=== PATIENT | male | born 1935 | race Caucasian/White ===

== ENCOUNTER → 2016-08-11 | Outpatient (CLI) | payer MEDICARE, OTHER ==
[~2016-08-11] MED LIST: ATENOLOL25 MG PO; MECLIZINE HCL25 M1 PO; ST. JOSEPH81 M2 PO
== END ==
LOC: LAB 17:11
DX: M77.12 Lateral epicondylitis, left elbow (principal); L03.114 Cellulitis of left upper limb

== ENCOUNTER → 2016-08-12 | Outpatient (CLI) | payer MEDICARE, OTHER | LOC: RAD 08:03 | DX: M77.12 Lateral epicondylitis, left elbow (principal); M11.222 Other chondrocalcinosis, left elbow ==

== ENCOUNTER → 2016-10-20 | Outpatient (CLI) | payer MEDICARE, OTHER | LOC: RAD 14:53 | DX: M25.561 Pain in right knee (principal); M79.671 Pain in right foot; M25.571 Pain in right ankle and joints of right foot; M17.11 Unilateral primary osteoarthritis, right knee; M11.261 Other chondrocalcinosis, right knee ==

== ENCOUNTER → 2016-12-03 | Outpatient (CLI) | payer MEDICARE ==
[2011-09-19 18:24] VITALS: BP 121/63
== END ==
LOC: RAD 11:04
DX: R41.3 Other amnesia (principal)

== ENCOUNTER → 2017-04-15 | Outpatient (CLI) | payer MEDICARE ==
[2011-09-19 18:24] VITALS: BP 121/63
== END ==
LOC: LAB 09:23
DX: I45.4 Nonspecific intraventricular block (principal)

== ENCOUNTER → 2017-05-04 | Outpatient (CLI) | payer MEDICARE ==
[2011-09-19 18:24] VITALS: BP 121/63
== END ==
LOC: LAB 09:10
DX: E03.9 Hypothyroidism, unspecified (principal)

== ENCOUNTER → 2018-04-12 | Outpatient (CLI) | payer MEDICARE, OTHER ==
[2011-09-19 18:24] VITALS: BP 121/63
[2018-04-12 09:52] LABS: EOS # 0.4 (0.04-0.40); HEMATOCRIT 38.3 % (42.0-52.0); HEMOGLOBIN 12.9 g/dL (13.5-18.0); MEAN CELL VOLUME 86 fl (78-100); MEAN CORPUSCULAR HEMOGLOBIN 29 pg (27-31); MEAN CORPUSCULAR HGB CONC 34 g/dL (33-37); MEAN PLATELET VOLUME 9.9 fl (7.4-10.4); MONO # 0.6 (0.20-0.80); PLATELET COUNT 115 K/mm3 (130-400); RED BLOOD COUNT 4.46 M/mm3 (4.20-5.60); RED CELL DISTRIBUTION WIDTH 13.4 % (11.5-14.5)
[2018-04-12 10:01] LABS: EOS % 7.2 % (0.0-4.0)
[2018-04-12 10:07] LABS: ALBUMIN 3.7 g/dL (3.5-5.0); CALCIUM 9.4 mg/dL (8.4-10.2); POTASSIUM 4.1 mmol/L (3.6-5.0); TOTAL BILIRUBIN 1.2 mg/dL (0.2-1.3); TOTAL PROTEIN 6.4 g/dL (6.3-8.2)
== END ==
LOC: LAB 09:36
PROVIDERS: Family Medicine
DX: Z00.00 Encounter for general adult medical examination without abnormal findings (principal); M10.9 Gout, unspecified; D51.0 Vitamin B12 deficiency anemia due to intrinsic factor deficiency; E78.5 Hyperlipidemia, unspecified; R73.02 Impaired glucose tolerance (oral); E03.9 Hypothyroidism, unspecified

== ENCOUNTER → 2018-10-11 | Outpatient (CLI) | payer MEDICARE, OTHER ==
[2011-09-19 18:24] VITALS: BP 121/63
[2018-10-11 13:43] LABS: EOS # 0.2 (0.04-0.40); EOS % 4.3 % (0.0-4.0); HEMATOCRIT 39.7 % (42.0-52.0); LYMPH# 0.8 (1.50-4.00); MEAN CELL VOLUME 85 fl (78-100); MEAN CORPUSCULAR HEMOGLOBIN 28 pg (27-31); MEAN CORPUSCULAR HGB CONC 33 g/dL (33-37); MEAN PLATELET VOLUME 10.1 fl (7.4-10.4); MONO # 0.4 (0.20-0.80); NEU # 4.1 (1.40-6.50); PLATELET COUNT 121 K/mm3 (130-400); RED BLOOD COUNT 4.66 M/mm3 (4.20-5.60); RED CELL DISTRIBUTION WIDTH 13.7 % (11.5-14.5); WHITE BLOOD COUNT 5.6 K/mm3 (4.8-10.8)
== END ==
LOC: LAB 13:28
PROVIDERS: Family Medicine
DX: D51.0 Vitamin B12 deficiency anemia due to intrinsic factor deficiency (principal); E03.9 Hypothyroidism, unspecified

== ENCOUNTER → 2019-02-09 | Outpatient (CLI) | payer MEDICARE, OTHER ==
[2011-09-19 18:24] VITALS: BP 121/63
[2019-02-09 11:47] LABS: EOS # 0.3 (0.04-0.40); HEMATOCRIT 42.1 % (42.0-52.0); HEMOGLOBIN 13.6 g/dL (13.5-18.0); LYMPH# 0.9 (1.50-4.00); MEAN CELL VOLUME 87 fl (78-100); MEAN CORPUSCULAR HEMOGLOBIN 28 pg (27-31); MEAN CORPUSCULAR HGB CONC 32 g/dL (33-37); MEAN PLATELET VOLUME 10.2 fl (7.4-10.4); MONO # 0.6 (0.20-0.80); NEU # 4.2 (1.40-6.50); PLATELET COUNT 136 K/mm3 (130-400); RED BLOOD COUNT 4.83 M/mm3 (4.20-5.60)
[2019-02-09 11:48] LABS: EOS % 5.7 % (0.0-4.0)
[2019-02-09 11:56] LABS: ALBUMIN 3.9 g/dL (3.4-4.8)
[2019-02-09 11:57] LABS: POTASSIUM 4.5 mmol/L (3.5-5.1)
[2019-02-09 11:58] LABS: CALCIUM 9.9 mg/dL (8.3-10.5)
[2019-02-09 11:59] LABS: TOTAL PROTEIN 6.6 g/dL (6.2-8.1)
[2019-02-09 12:01] LABS: TOTAL BILIRUBIN 1.1 mg/dL (0.2-1.2)
== END ==
LOC: LAB 11:37
PROVIDERS: Nurse Practitioner
DX: K92.1 Melena (principal)

== ENCOUNTER → 2019-03-16 | Outpatient (CLI) | payer MEDICARE, OTHER ==
[2011-09-19 18:24] VITALS: BP 121/63
[2019-03-16 13:55] LABS: CALCIUM 9.2 mg/dL (8.3-10.5); POTASSIUM 4.1 mmol/L (3.5-5.1)
== END ==
LOC: LAB 13:10
PROVIDERS: Family Medicine
DX: N17.9 Acute kidney failure, unspecified (principal)

== ENCOUNTER → 2019-04-28 | Outpatient (CLI) | payer MEDICARE, OTHER ==
[2011-09-19 18:24] VITALS: BP 121/63
[2019-04-28 12:41] LABS: POTASSIUM 4.7 mmol/L (3.5-5.1)
[2019-04-28 12:43] LABS: TOTAL PROTEIN 6.8 g/dL (6.2-8.1)
[2019-04-28 12:45] LABS: TOTAL BILIRUBIN 1.2 mg/dL (0.2-1.2)
== END ==
LOC: RAD 12:03
PROVIDERS: Internal Medicine Cardiovascular Disease
DX: Z95.0 Presence of cardiac pacemaker (principal); Z79.899 Other long term (current) drug therapy

== ENCOUNTER → 2019-06-02 | Outpatient (CLI) | payer MEDICARE, OTHER ==
[2011-09-19 18:24] VITALS: BP 121/63
[2019-06-03 08:48] LABS: ALBUMIN 3.4 g/dL (3.4-4.8); POTASSIUM 4.3 mmol/L (3.5-5.1)
[2019-06-03 08:49] LABS: CALCIUM 9.3 mg/dL (8.3-10.5)
[2019-06-03 08:50] LABS: TOTAL PROTEIN 5.7 g/dL (6.2-8.1)
[2019-06-03 08:52] LABS: TOTAL BILIRUBIN 0.7 mg/dL (0.2-1.2)
[2019-06-05 09:59] LABS: EOS # 0.2 (0.04-0.40); EOS % 3.2 % (0.0-4.0); HEMOGLOBIN 12.2 g/dL (13.5-18.0); MEAN CELL VOLUME 88 fl (78-100); MEAN CORPUSCULAR HEMOGLOBIN 28 pg (27-31); MEAN CORPUSCULAR HGB CONC 32 g/dL (33-37); MEAN PLATELET VOLUME 11.9 fl (7.4-10.4); MONO # 0.6 (0.20-0.80); NEU # 5.1 (1.40-6.50); PLATELET COUNT 113 K/mm3 (130-400); RED CELL DISTRIBUTION WIDTH 12.9 % (11.5-14.5); WHITE BLOOD COUNT 6.9 K/mm3 (4.8-10.8)
== END ==
LOC: LAB 13:07
PROVIDERS: Family Medicine
DX: N28.9 Disorder of kidney and ureter, unspecified (principal); K92.1 Melena; E78.5 Hyperlipidemia, unspecified; E03.9 Hypothyroidism, unspecified; R73.02 Impaired glucose tolerance (oral)

== ENCOUNTER → 2019-12-06 | Outpatient (CLI) | payer MEDICARE, OTHER ==
[2019-10-20 13:27] VITALS: BP 145/84
[~2019-12-06] MED LIST changes: +AMIODARONE200 MG PO; +ATORVASTATIN CA40 MG PO; +COLCRYS0.6 MG PO; +DONEPEZIL HCL10 MG PO; +GOOD NEIGHBOR150 MG PO; +LEVOTHYROXINE0.05 MG PO; +LOPRESSOR 225 MG/TAB PO; +MEMANTINE HCL10 MG PO
[2019-12-06 11:38] LABS: EOS # 0.3 (0.04-0.40); EOS % 4.5 % (0.0-4.0); HEMATOCRIT 36.1 % (42.0-52.0); HEMOGLOBIN 11.4 g/dL (13.5-18.0); LYMPH# 0.9 (1.50-4.00); MEAN CELL VOLUME 87 fl (78-100); MEAN CORPUSCULAR HEMOGLOBIN 28 pg (27-31); MEAN CORPUSCULAR HGB CONC 32 g/dL (33-37); MEAN PLATELET VOLUME 9.7 fl (7.4-10.4); MONO # 0.6 (0.20-0.80); NEU # 4.2 (1.40-6.50); PLATELET COUNT 116 K/mm3 (130-400); RED BLOOD COUNT 4.15 M/mm3 (4.20-5.60); RED CELL DISTRIBUTION WIDTH 14.9 % (11.5-14.5)
[2019-12-06 11:47] LABS: ALBUMIN 3.3 g/dL (3.4-4.8); POTASSIUM 4.3 mmol/L (3.5-5.1)
[2019-12-06 11:49] LABS: TOTAL PROTEIN 5.7 g/dL (6.2-8.1)
[2019-12-06 11:51] LABS: TOTAL BILIRUBIN 0.9 mg/dL (0.2-1.2)
== END ==
LOC: LAB 11:19
PROVIDERS: Family Medicine
DX: D64.9 Anemia, unspecified (principal); E78.1 Pure hyperglyceridemia

== ENCOUNTER → 2020-05-11 | Outpatient (CLI) | payer MEDICARE, OTHER ==
[2019-10-20 13:27] VITALS: BP 145/84
[2020-05-11 09:01] LABS: ALBUMIN 3.5 g/dL (3.4-4.8)
[2020-05-11 09:04] LABS: TOTAL PROTEIN 5.9 g/dL (6.2-8.1)
[2020-05-11 09:06] LABS: TOTAL BILIRUBIN 0.9 mg/dL (0.2-1.2)
[2020-05-11 09:09] LABS: DIRECT BILIRUBIN 0.5 mg/dL (0.0-0.5)
== END ==
LOC: LAB 08:27
PROVIDERS: Family Medicine
DX: E78.5 Hyperlipidemia, unspecified (principal)

== ENCOUNTER → 2020-05-16 | Outpatient (CLI) | payer MEDICARE, OTHER ==
[2019-10-20 13:27] VITALS: BP 145/84
[2020-05-16 10:03] LABS: HEMATOCRIT 34.9 % (42.0-52.0); HEMOGLOBIN 11.1 g/dL (13.5-18.0); MEAN PLATELET VOLUME 10.5 fl (7.4-10.4); RED BLOOD COUNT 3.92 M/mm3 (4.20-5.60); RED CELL DISTRIBUTION WIDTH 13.9 % (11.5-14.5); WHITE BLOOD COUNT 7.8 K/mm3 (4.8-10.8)
[2020-05-16 10:12] LABS: POTASSIUM 3.6 mmol/L (3.5-5.1)
[2020-05-16 10:13] LABS: CALCIUM 9.2 mg/dL (8.3-10.5)
== END ==
LOC: LAB 09:32
PROVIDERS: Family Medicine
DX: Z23 Encounter for immunization (principal); E03.9 Hypothyroidism, unspecified; D51.0 Vitamin B12 deficiency anemia due to intrinsic factor deficiency; Z95.0 Presence of cardiac pacemaker; I10 Essential (primary) hypertension; R60.0 Localized edema

== ENCOUNTER → 2020-11-05 | Outpatient (CLI) | payer MEDICARE, OTHER ==
[2019-10-20 13:27] VITALS: BP 145/84
[~2020-11-05] MED LIST changes: +B COMPLEX1 EACH PO; +COMBIGAN 0.2%-010 ML OP; +FUROSEMIDE40 MG; +IRON 100 PLUS 21 TAB PO; +KEPPRA 500MG500 MG PO; +LATANOPROST 2.2.5 ML OU; +MIRALAX17 GM PO; +OMEPRAZOLE40 MG PO; +PRILOSEC 20MG20 MG PO; +ST. JOSEPH ASPI81 MG PO; +SYSTANE GEL EYE10 ML OP
[2020-11-05 12:00] LABS: MEAN CELL VOLUME 90 fl (78-100); MEAN CORPUSCULAR HEMOGLOBIN 28 pg (27-31); MEAN CORPUSCULAR HGB CONC 31 g/dL (33-37); MEAN PLATELET VOLUME 10.2 fl (7.4-10.4); PLATELET COUNT 116 K/mm3 (130-400); RED BLOOD COUNT 3.91 M/mm3 (4.20-5.60); RED CELL DISTRIBUTION WIDTH 13.4 % (11.5-14.5); WHITE BLOOD COUNT 6.5 K/mm3 (4.8-10.8)
[2020-11-05 12:06] LABS: ALBUMIN 3.5 g/dL (3.4-4.8)
[2020-11-05 12:07] LABS: POTASSIUM 4.1 mmol/L (3.5-5.1)
[2020-11-05 12:11] LABS: TOTAL BILIRUBIN 0.9 mg/dL (0.2-1.2)
[2020-11-05 13:29] LABS: LYMPHOCYTE 13 % (20-51); MONOCYTE 9 % (3-10); NEUTROPHILS 74 % (42-75)
[2020-11-05 13:30] LABS: TARGET CELLS 2+
== END ==
LOC: LAB 11:39
PROVIDERS: Family Medicine
DX: I10 Essential (primary) hypertension (principal); E03.9 Hypothyroidism, unspecified

== ENCOUNTER → 2021-01-18 | Outpatient (CLI) | payer MEDICARE, OTHER | LOC: RAD 10:49 | PROVIDERS: Internal Medicine Cardiovascular Disease | DX: Z79.899 Other long term (current) drug therapy (principal); Z95.0 Presence of cardiac pacemaker ==

== ENCOUNTER 2021-01-28 07:09 | Emergency (ER) | payer MEDICARE, OTHER ==
[~2021-01-28 07:09] MED LIST changes: -B COMPLEX1 EACH PO; -COMBIGAN 0.2%-010 ML OP; -FUROSEMIDE40 MG; -IRON 100 PLUS 21 TAB PO; -KEPPRA 500MG500 MG PO; -LATANOPROST 2.2.5 ML OU; -MIRALAX17 GM PO; -OMEPRAZOLE40 MG PO; -PRILOSEC 20MG20 MG PO; -ST. JOSEPH ASPI81 MG PO; -SYSTANE GEL EYE10 ML OP
[2021-01-28] MEDS ORDERED: OMEPRAZOLE40 MG PO (07:20)
[2021-01-28] MEDS ORDERED: COMBIGAN 0.2%-010 ML OP (07:20)
[2021-01-28] MEDS ORDERED: FUROSEMIDE40 MG (07:21)
[2021-01-28 07:53] LABS: ALBUMIN 3.5 g/dL (3.4-4.8); HEMATOCRIT 33.4 % (42.0-52.0); HEMOGLOBIN 11.1 g/dL (13.5-18.0); MEAN CELL VOLUME 88 fl (78-100); MEAN CORPUSCULAR HEMOGLOBIN 29 pg (27-31); MEAN CORPUSCULAR HGB CONC 33 g/dL (33-37); MEAN PLATELET VOLUME 10.5 fl (7.4-10.4); PLATELET COUNT 98 K/mm3 (130-400); POTASSIUM 3.7 mmol/L (3.5-5.1); RED CELL DISTRIBUTION WIDTH 13.4 % (11.5-14.5); SODIUM 135 mmol/L (136-145)
[2021-01-28 07:55] LABS: CALCIUM 9.1 mg/dL (8.3-10.5)
[2021-01-28 07:56] LABS: GLUCOSE 107 mg/dL (75-110); TOTAL PROTEIN 6.1 g/dL (6.2-8.1)
[2021-01-28 07:57] LABS: CARBON DIOXIDE 26 mmol/L (23-31)
[2021-01-28 07:58] LABS: TOTAL BILIRUBIN 1.4 mg/dL (0.2-1.2)
[2021-01-28 07:59] LABS: PARTIAL THROMBOPLASTIN TIME 24.8 SECONDS (21.0-32.0); PROTHROMBIN TIME 10.5 SECONDS (9.0-12.0)
[2021-01-28 08:01] LABS: AST-SGOT 24 U/L (5-34)
[2021-01-28 08:02] LABS: ALT/SGPT 26 U/L (0-55)
[2021-01-28 08:03] LABS: LIPASE 23 U/L (8-78)
[2021-01-28 08:15] LABS: TROPONIN-I < 0.03 ng/mL (<0.030)
[2021-01-28 08:17] LABS: LYMPHOCYTE 5 % (20-51); MONOCYTE 7 % (3-10); NEUTROPHILS 87 % (42-75)
[2021-01-28] MEDS ORDERED: PRILOSEC 20MG20 MG PO (10:54)
[2021-01-28 11:55] VITALS: BP 113/71
== END 2021-01-28 11:03 | disposition home or self-care (01) ==
LOC: ED 07:09
PROVIDERS: Nurse Practitioner
DX: K30 Functional dyspepsia (principal); K21.9 Gastro-esophageal reflux disease without esophagitis; E78.5 Hyperlipidemia, unspecified; F03.90 Unspecified dementia, unspecified severity, without behavioral disturbance, psychotic disturbance, mood disturbance, and anxiety; E07.9 Disorder of thyroid, unspecified; Z79.890 Hormone replacement therapy; Z79.899 Other long term (current) drug therapy

== ENCOUNTER 2021-04-06 20:14 | Emergency (ER) | payer MEDICARE, OTHER ==
[~2021-04-06] VITALS: Ht 177.8 cm; Wt 88.9 kg
[~2021-04-06 20:14] MED LIST changes: +COMBIGAN 0.2%-010 ML OP; +FUROSEMIDE40 MG; +OMEPRAZOLE40 MG PO; +PRILOSEC 20MG20 MG PO
[2021-04-06] MEDS ORDERED: COMBIGAN 0.2%-010 ML OP (20:40)
[2021-04-06] MEDS ORDERED: SYSTANE GEL EYE10 ML OP (20:41)
[2021-04-06] MEDS ORDERED: PRILOSEC 20MG20 MG PO (20:42)
[2021-04-06] MEDS ORDERED: B COMPLEX1 EACH PO (20:44)
[2021-04-06] MEDS ORDERED: ST. JOSEPH ASPI81 MG PO (20:44)
[2021-04-06] MEDS ORDERED: IRON 100 PLUS 21 TAB PO (20:45)
[2021-04-06] MEDS ORDERED: LATANOPROST 2.2.5 ML OU (20:46)
[2021-04-06] MEDS ORDERED: MIRALAX17 GM PO (20:48)
[2021-04-06 22:19] VITALS: BP 136/78
[2021-04-07] MEDS ORDERED: OMEPRAZOLE40 MG PO (12:40)
[2021-04-07] MEDS ORDERED: KEPPRA 500MG500 MG PO (13:04)
== END 2021-04-06 22:22 | disposition home or self-care (01) ==
LOC: ED 20:14
DX: S01.01XA Laceration without foreign body of scalp, initial encounter (principal); K30 Functional dyspepsia; I10 Essential (primary) hypertension; F03.90 Unspecified dementia, unspecified severity, without behavioral disturbance, psychotic disturbance, mood disturbance, and anxiety; Z79.899 Other long term (current) drug therapy; W10.1XXA Fall (on)(from) sidewalk curb, initial encounter; Y92.009 Unspecified place in unspecified non-institutional (private) residence as the place of occurrence of the external cause

== ENCOUNTER 2021-04-07 10:44 | Emergency (ER) | payer MEDICARE, OTHER ==
[~2021-04-07 10:44] MED LIST changes: +B COMPLEX1 EACH PO; +IRON 100 PLUS 21 TAB PO; +LATANOPROST 2.2.5 ML OU; +MIRALAX17 GM PO; +ST. JOSEPH ASPI81 MG PO; +SYSTANE GEL EYE10 ML OP
[2021-04-07] MEDS ORDERED: OMEPRAZOLE40 MG PO (12:40)
[2021-04-07] MEDS ORDERED: KEPPRA 500MG500 MG PO (13:04)
[2021-04-07 13:26] VITALS: BP 119/69
== END 2021-04-07 13:20 | disposition home or self-care (01) ==
LOC: ED 10:44
DX: S01.01XA Laceration without foreign body of scalp, initial encounter (principal); S06.6X0A Traumatic subarachnoid hemorrhage without loss of consciousness, initial encounter; M89.9 Disorder of bone, unspecified; I10 Essential (primary) hypertension; F03.90 Unspecified dementia, unspecified severity, without behavioral disturbance, psychotic disturbance, mood disturbance, and anxiety; Z79.899 Other long term (current) drug therapy; W01.198A Fall on same level from slipping, tripping and stumbling with subsequent striking against other object, initial encounter; Y92.009 Unspecified place in unspecified non-institutional (private) residence as the place of occurrence of the external cause

== ENCOUNTER → 2021-04-22 | Outpatient (CLI) | payer MEDICARE, OTHER ==
[~2021-04-22] MED LIST changes: +KEPPRA 500MG500 MG PO
== END ==
LOC: RAD 09:51
DX: I60.9 Nontraumatic subarachnoid hemorrhage, unspecified (principal)

== ENCOUNTER 2021-05-09 05:01 | Emergency (ER) | payer MEDICARE, OTHER ==
[~2021-05-09] VITALS: Ht 175.3 cm; Wt 90.5 kg
[2021-05-09 05:49] LABS: BASO # 0.02 K/mm3 (0.02-0.10); EOS # 0.14 K/mm3 (0.04-0.40); EOS % 2.4 % (0.0-4.0); HEMATOCRIT 31.7 % (42.0-52.0); HEMOGLOBIN 10.4 g/dL (13.5-18.0); LYMPH# 0.68 K/mm3 (1.50-4.00); MEAN CELL VOLUME 87 fl (78-100); MEAN CORPUSCULAR HEMOGLOBIN 28 pg (27-31); MEAN CORPUSCULAR HGB CONC 33 g/dL (33-37); MEAN PLATELET VOLUME 9.7 fl (7.4-10.4); MONO # 0.51 K/mm3 (0.20-0.80); NEU # 4.44 K/mm3 (1.40-6.50); PLATELET COUNT 128 K/mm3 (130-400); RED BLOOD COUNT 3.66 M/mm3 (4.20-5.60); WHITE BLOOD COUNT 5.8 K/mm3 (4.8-10.8)
[2021-05-09 05:57] LABS: ALBUMIN 3.2 g/dL (3.4-4.8)
[2021-05-09 05:58] LABS: POTASSIUM 3.5 mmol/L (3.5-5.1); SODIUM 133 mmol/L (136-145)
[2021-05-09 05:59] LABS: CALCIUM 9.4 mg/dL (8.3-10.5)
[2021-05-09 06:00] LABS: GLUCOSE 95 mg/dL (75-110); TOTAL PROTEIN 5.7 g/dL (6.2-8.1)
[2021-05-09 06:01] LABS: CARBON DIOXIDE 22 mmol/L (23-31)
[2021-05-09 06:02] LABS: TOTAL BILIRUBIN 1.3 mg/dL (0.2-1.2)
[2021-05-09 06:05] LABS: AST-SGOT 25 U/L (5-34)
[2021-05-09 06:07] LABS: ALT/SGPT 30 U/L (0-55)
[2021-05-09 06:13] LABS: TROPONIN-I < 0.03 ng/mL (<0.030)
[2021-05-09 06:58] LABS: PH-URINE 8.5 (5.0 - 8.0); URINE APPEARANCE CLEAR; URINE BILIRUBIN NEGATIVE (NEGATIVE); URINE BLOOD TRACE (NEGATIVE); URINE COLOR YELLOW; URINE GLUCOSE NEGATIVE (NEGATIVE); URINE KETONE NEGATIVE (NEGATIVE); URINE LEUKOCYTE ESTERASE NEGATIVE (NEGATIVE); URINE NITRATE NEGATIVE (NEGATIVE); URINE PROTEIN(semi-quant) NEGATIVE (NEGATIVE); URINE UROBILINOGEN NORMAL (NORMAL); URINE WBC 0-1 /hpf (0-3)
[2021-05-09 07:55] VITALS: BP 124/63
== END 2021-05-09 07:53 | disposition home or self-care (01) ==
LOC: ED 05:01
PROVIDERS: Family Medicine
DX: R53.81 Other malaise (principal); R53.83 Other fatigue; F03.90 Unspecified dementia, unspecified severity, without behavioral disturbance, psychotic disturbance, mood disturbance, and anxiety; E03.9 Hypothyroidism, unspecified; E78.5 Hyperlipidemia, unspecified; I10 Essential (primary) hypertension; Z79.890 Hormone replacement therapy; Z79.899 Other long term (current) drug therapy

== ENCOUNTER → 2021-06-20 | Outpatient (CLI) | payer MEDICARE ==
[2021-06-20 09:16] LABS: HEMATOCRIT 35.5 % (42.0-52.0); HEMOGLOBIN 11.7 g/dL (13.5-18.0); RED BLOOD COUNT 4.09 M/mm3 (4.20-5.60); RED CELL DISTRIBUTION WIDTH 13.6 % (11.5-14.5); WHITE BLOOD COUNT 9.2 K/mm3 (4.8-10.8)
[2021-06-20 09:23] LABS: ALBUMIN 3.5 g/dL (3.4-4.8); POTASSIUM 3.1 mmol/L (3.5-5.1)
[2021-06-20 09:24] LABS: CALCIUM 9.3 mg/dL (8.3-10.5)
[2021-06-20 09:27] LABS: TOTAL BILIRUBIN 1.6 mg/dL (0.2-1.2)
== END ==
LOC: LAB 08:42
PROVIDERS: Family Medicine
DX: Z00.00 Encounter for general adult medical examination without abnormal findings (principal); M10.9 Gout, unspecified; E03.9 Hypothyroidism, unspecified; E78.5 Hyperlipidemia, unspecified

== ENCOUNTER → 2021-10-18 | Outpatient (CLI) | payer MEDICARE ==
[2021-10-18 11:50] LABS: ALBUMIN 3.6 g/dL (3.4-4.8); POTASSIUM 4.3 mmol/L (3.5-5.1)
[2021-10-18 11:52] LABS: CALCIUM 9.3 mg/dL (8.3-10.5)
[2021-10-18 11:53] LABS: TOTAL PROTEIN 6.2 g/dL (6.2-8.1)
[2021-10-18 11:55] LABS: TOTAL BILIRUBIN 0.7 mg/dL (0.2-1.2)
== END ==
LOC: LAB 11:18
PROVIDERS: Internal Medicine Cardiovascular Disease
DX: Z79.899 Other long term (current) drug therapy (principal)

== ENCOUNTER → 2021-11-27 | Outpatient (CLI) | payer MEDICARE | LOC: RAD 16:58 | DX: M18.11 Unilateral primary osteoarthritis of first carpometacarpal joint, right hand (principal) ==

== ENCOUNTER 2022-01-01 10:22 | Observation (INO) | payer MEDICARE ==
[~2022-01-01] VITALS: Ht 172.7 cm; Wt 93.2 kg
[2022-01-01] MEDS ORDERED: FUROSEMIDE20 MG PO (10:57)
[2022-01-01] MEDS ORDERED: MELATONIN10 M4 SL (10:58)
[2022-01-01] MEDS ORDERED: ANTIFUNGAL CRE141 GM TP (11:02)
[2022-01-01] MEDS ORDERED: MUPIROCIN2% TP (11:05)
[2022-01-01 11:17] LABS: HEMATOCRIT 30.1 % (42.0-52.0); HEMOGLOBIN 9.9 g/dL (13.5-18.0); MEAN CELL VOLUME 88 fl (78-100); MEAN CORPUSCULAR HEMOGLOBIN 29 pg (27-31); MEAN CORPUSCULAR HGB CONC 33 g/dL (33-37); MEAN PLATELET VOLUME 10.1 fl (7.4-10.4); PLATELET COUNT 106 K/mm3 (130-400); RED BLOOD COUNT 3.44 M/mm3 (4.20-5.60); RED CELL DISTRIBUTION WIDTH 13.9 % (11.5-14.5); WHITE BLOOD COUNT 3.9 K/mm3 (4.8-10.8)
[2022-01-01 11:25] LABS: ALBUMIN 3.1 g/dL (3.4-4.8); POTASSIUM 3.7 mmol/L (3.5-5.1); SODIUM 138 mmol/L (136-145)
[2022-01-01 11:26] LABS: CALCIUM 8.3 mg/dL (8.3-10.5)
[2022-01-01 11:28] LABS: GLUCOSE 133 mg/dL (75-110); TOTAL PROTEIN 5.2 g/dL (6.2-8.1)
[2022-01-01 11:29] LABS: CARBON DIOXIDE 23 mmol/L (23-31)
[2022-01-01 11:33] LABS: AST-SGOT 17 U/L (5-34)
[2022-01-01 11:34] LABS: ALT/SGPT 14 U/L (0-55)
[2022-01-01 11:36] LABS: URINE APPEARANCE CLEAR; URINE COLOR DARK YELLOW; URINE PROTEIN(semi-quant) TRACE (NEGATIVE)
[2022-01-01 11:37] LABS: URINE BLOOD NEGATIVE (NEGATIVE); URINE GLUCOSE NEGATIVE (NEGATIVE); URINE KETONE NEGATIVE (NEGATIVE); URINE LEUKOCYTE ESTERASE NEGATIVE (NEGATIVE); URINE NITRATE NEGATIVE (NEGATIVE); URINE UROBILINOGEN NORMAL (NORMAL)
[2022-01-01 12:03] LABS: LYMPHOCYTE 15 % (20-51); MONOCYTE 11 % (3-10); NEUTROPHILS 70 % (42-75)
[2022-01-01 13:51] VITALS: BP 130/71
[2022-01-01 17:25] VITALS: BP 119/68
[2022-01-02 06:00] VITALS: BP 119/79
[2022-01-02 07:12] LABS: BASO # 0.01 K/mm3 (0.02-0.10); EOS # 0.13 K/mm3 (0.04-0.40); EOS % 2.2 % (0.0-4.0); HEMOGLOBIN 10.8 g/dL (13.5-18.0); LYMPH# 0.64 K/mm3 (1.50-4.00); MEAN CELL VOLUME 88 fl (78-100); MEAN CORPUSCULAR HEMOGLOBIN 29 pg (27-31); MEAN CORPUSCULAR HGB CONC 33 g/dL (33-37); MEAN PLATELET VOLUME 10.4 fl (7.4-10.4); MONO # 0.48 K/mm3 (0.20-0.80); NEU # 4.76 K/mm3 (1.40-6.50); PLATELET COUNT 111 K/mm3 (130-400); RED BLOOD COUNT 3.77 M/mm3 (4.20-5.60); RED CELL DISTRIBUTION WIDTH 13.9 % (11.5-14.5)
[2022-01-02 07:16] LABS: POTASSIUM 3.9 mmol/L (3.5-5.1)
[2022-01-02 07:17] LABS: CALCIUM 8.6 mg/dL (8.3-10.5)
[2022-01-02] MEDS ORDERED: LOPRESSOR 225 MG/TAB PO ×2 (08:37)
[2022-01-02] MEDS ORDERED: METOPROLOL SUCC25 M1 PO (09:00)
[2022-01-02 09:53] VITALS: BP 120/69
== END 2022-01-02 10:20 ==
LOC: ED 10:22 → MED/SURG 12:20
PROVIDERS: ADMIT Physician Assistant
DX: R55 Syncope and collapse (principal); I95.9 Hypotension, unspecified; R41.82 Altered mental status, unspecified; D64.9 Anemia, unspecified; G30.9 Alzheimer's disease, unspecified; F02.80 Dementia in other diseases classified elsewhere, unspecified severity, without behavioral disturbance, psychotic disturbance, mood disturbance, and anxiety; E03.9 Hypothyroidism, unspecified; Z20.822 Contact with and (suspected) exposure to COVID-19; Z79.82 Long term (current) use of aspirin; Z95.0 Presence of cardiac pacemaker
CPT/HCPCS: G0378; J7030

== ENCOUNTER → 2022-01-16 | Outpatient (CLI) | payer MEDICARE ==
[~2022-01-16] MED LIST changes: +ANTIFUNGAL CRE141 GM TP; +FUROSEMIDE20 MG PO; +MELATONIN10 M4 SL; +METOPROLOL SUCC25 M1 PO; +MUPIROCIN2% TP
[2022-01-16 20:21] LABS: URINE APPEARANCE CLEAR; URINE BILIRUBIN 2+ (NEGATIVE); URINE BLOOD NEGATIVE (NEGATIVE); URINE COLOR YELLOW; URINE GLUCOSE NEGATIVE (NEGATIVE); URINE KETONE NEGATIVE (NEGATIVE); URINE LEUKOCYTE ESTERASE TRACE (NEGATIVE); URINE NITRATE NEGATIVE (NEGATIVE); URINE PROTEIN(semi-quant) NEGATIVE (NEGATIVE); URINE UROBILINOGEN 4 mg/dL (NORMAL); URINE WBC 0-1 /hpf (0-3)
[2022-01-16 20:22] LABS: URINE MUCUS PRESENT (NOT PRESENT)
== END ==
LOC: LAB 18:00
PROVIDERS: Family Medicine
DX: R53.83 Other fatigue (principal); R39.9 Unspecified symptoms and signs involving the genitourinary system

== ENCOUNTER → 2022-02-19 | Outpatient (CLI) | payer MEDICARE ==
[2022-02-19 09:07] LABS: BASO # 0.02 K/mm3 (0.02-0.10); EOS # 0.24 K/mm3 (0.04-0.40); EOS % 5.5 % (0.0-4.0); HEMATOCRIT 35.4 % (42.0-52.0); HEMOGLOBIN 11.5 g/dL (13.5-18.0); LYMPH# 0.99 K/mm3 (1.50-4.00); MEAN CELL VOLUME 88 fl (78-100); MEAN CORPUSCULAR HEMOGLOBIN 29 pg (27-31); MEAN CORPUSCULAR HGB CONC 33 g/dL (33-37); MEAN PLATELET VOLUME 10.1 fl (7.4-10.4); MONO # 0.44 K/mm3 (0.20-0.80); NEU # 2.64 K/mm3 (1.40-6.50); PLATELET COUNT 137 K/mm3 (130-400); RED BLOOD COUNT 4.02 M/mm3 (4.20-5.60); RED CELL DISTRIBUTION WIDTH 13.8 % (11.5-14.5); WHITE BLOOD COUNT 4.3 K/mm3 (4.8-10.8)
[2022-02-19 09:09] LABS: ALBUMIN 3.2 g/dL (3.4-4.8); POTASSIUM 4.3 mmol/L (3.5-5.1); SODIUM 141 mmol/L (136-145)
[2022-02-19 09:10] LABS: CALCIUM 9.1 mg/dL (8.3-10.5)
[2022-02-19 09:12] LABS: GLUCOSE 94 mg/dL (75-110); TOTAL PROTEIN 5.6 g/dL (6.2-8.1)
[2022-02-19 09:13] LABS: CARBON DIOXIDE 26 mmol/L (23-31); TOTAL BILIRUBIN 0.8 mg/dL (0.2-1.2)
[2022-02-19 09:17] LABS: AST-SGOT 19 U/L (5-34)
[2022-02-19 09:18] LABS: ALT/SGPT 18 U/L (0-55)
[2022-02-19 09:25] LABS: TROPONIN-I < 0.030 ng/mL (<0.030)
[2022-02-19 09:44] LABS: D-DIMER 1.82 mg/L FEU (0.15-0.50)
[2022-02-19 19:26] LABS: URINE WBC 0 /hpf (0-3)
[2022-02-19 20:37] LABS: URINE APPEARANCE CLEAR; URINE BILIRUBIN NEGATIVE (NEGATIVE); URINE COLOR YELLOW; URINE GLUCOSE NEGATIVE (NEGATIVE); URINE KETONE NEGATIVE (NEGATIVE); URINE PROTEIN(semi-quant) NEGATIVE (NEGATIVE); URINE UROBILINOGEN 8 mg/dL (NORMAL)
[2022-02-19 20:42] LABS: URINE BLOOD NEGATIVE (NEGATIVE); URINE LEUKOCYTE ESTERASE NEGATIVE (NEGATIVE); URINE MUCUS PRESENT (NOT PRESENT); URINE NITRATE NEGATIVE (NEGATIVE)
== END ==
LOC: LAB 08:28
PROVIDERS: Family Medicine
DX: M50.30 Other cervical disc degeneration, unspecified cervical region (principal); R41.82 Altered mental status, unspecified; M10.9 Gout, unspecified; I10 Essential (primary) hypertension; F03.90 Unspecified dementia, unspecified severity, without behavioral disturbance, psychotic disturbance, mood disturbance, and anxiety; K21.9 Gastro-esophageal reflux disease without esophagitis; Z95.0 Presence of cardiac pacemaker; D51.0 Vitamin B12 deficiency anemia due to intrinsic factor deficiency; E03.9 Hypothyroidism, unspecified; E66.9 Obesity, unspecified; E87.6 Hypokalemia; E78.5 Hyperlipidemia, unspecified

== ENCOUNTER → 2022-02-25 | Outpatient (CLI) | payer MEDICARE | LOC: RAD 09:00 | DX: I51.7 Cardiomegaly (principal); I25.10 Atherosclerotic heart disease of native coronary artery without angina pectoris | CPT/HCPCS: Q9967 ==

== ENCOUNTER → 2022-02-27 | Outpatient (CLI) | payer MEDICARE ==
[2022-02-27 14:21] LABS: URINE APPEARANCE CLEAR; URINE COLOR YELLOW
[2022-02-27 14:22] LABS: URINE BILIRUBIN NEGATIVE (NEGATIVE); URINE BLOOD NEGATIVE (NEGATIVE); URINE GLUCOSE NEGATIVE (NEGATIVE); URINE KETONE NEGATIVE (NEGATIVE); URINE LEUKOCYTE ESTERASE NEGATIVE (NEGATIVE); URINE NITRATE NEGATIVE (NEGATIVE); URINE PROTEIN(semi-quant) TRACE (NEGATIVE); URINE UROBILINOGEN 1 mg/dL (NORMAL); URINE WBC 0 /hpf (0-3)
[2022-02-27 14:23] LABS: URINE MUCUS PRESENT (NOT PRESENT)
== END ==
LOC: LAB 13:32
PROVIDERS: Family Medicine
DX: R41.82 Altered mental status, unspecified (principal)

== ENCOUNTER → 2022-04-08 | Outpatient (CLI) | payer MEDICARE ==
[2022-04-08 14:40] LABS: ALBUMIN 3.4 g/dL (3.4-4.8); POTASSIUM 4.2 mmol/L (3.5-5.1)
[2022-04-08 14:42] LABS: CALCIUM 9.1 mg/dL (8.3-10.5)
[2022-04-08 14:43] LABS: TOTAL PROTEIN 6.1 g/dL (6.2-8.1)
[2022-04-08 14:45] LABS: TOTAL BILIRUBIN 0.8 mg/dL (0.2-1.2)
== END ==
LOC: LAB 10:29
PROVIDERS: Internal Medicine Cardiovascular Disease
DX: Z79.899 Other long term (current) drug therapy (principal)

== ENCOUNTER 2022-06-16 10:34 | Observation (INO) | payer MEDICARE ==
[~2022-06-16] VITALS: Wt 88.0 kg
[~2022-06-16 10:34] MED LIST changes: +CIPRODEX 0.3%-7.5 ML OT
[2022-06-16] MEDS ORDERED: QUETIAPINE FUMA25 M3 PO (10:57)
[2022-06-16] MEDS ORDERED: SERTRALINE50 MG PO (10:57)
[2022-06-16] MEDS ORDERED: PRILOSEC 20MG20 MG PO (10:57)
[2022-06-16 11:16] LABS: HEMATOCRIT 40.8 % (42.0-52.0); HEMOGLOBIN 13.3 g/dL (13.5-18.0); LYMPH# 0.63 K/mm3 (1.50-4.00); MEAN CELL VOLUME 87 fl (78-100); MEAN CORPUSCULAR HEMOGLOBIN 28 pg (27-31); MEAN CORPUSCULAR HGB CONC 33 g/dL (33-37); MEAN PLATELET VOLUME 10.6 fl (7.4-10.4); MONO # 1.23 K/mm3 (0.20-0.80); NEU # 12.42 K/mm3 (1.40-6.50); PLATELET COUNT 151 K/mm3 (130-400); RED BLOOD COUNT 4.71 M/mm3 (4.20-5.60); RED CELL DISTRIBUTION WIDTH 12.8 % (11.5-14.5); WHITE BLOOD COUNT 14.3 K/mm3 (4.8-10.8)
[2022-06-16 11:23] LABS: POTASSIUM 4.1 mmol/L (3.5-5.1); SODIUM 139 mmol/L (136-145)
[2022-06-16 11:24] LABS: ALBUMIN 3.6 g/dL (3.4-4.8)
[2022-06-16 11:26] LABS: TOTAL PROTEIN 6.7 g/dL (6.2-8.1)
[2022-06-16 11:27] LABS: CARBON DIOXIDE 25 mmol/L (23-31); GLUCOSE 147 mg/dL (75-110)
[2022-06-16 11:28] LABS: TOTAL BILIRUBIN 1.7 mg/dL (0.2-1.2)
[2022-06-16 11:31] LABS: AST-SGOT 41 U/L (5-34)
[2022-06-16 11:34] LABS: ALT/SGPT 36 U/L (0-55)
[2022-06-16 11:46] LABS: TROPONIN-I < 0.030 ng/mL (<0.030)
[2022-06-16 14:12] LABS: URINE APPEARANCE CLEAR; URINE COLOR AMBER
[2022-06-16 14:13] LABS: URINE BILIRUBIN NEGATIVE (NEGATIVE); URINE BLOOD NEGATIVE (NEGATIVE); URINE GLUCOSE NEGATIVE (NEGATIVE); URINE KETONE NEGATIVE (NEGATIVE); URINE LEUKOCYTE ESTERASE NEGATIVE (NEGATIVE); URINE NITRATE NEGATIVE (NEGATIVE); URINE PROTEIN(semi-quant) TRACE (NEGATIVE); URINE UROBILINOGEN NORMAL (NORMAL); URINE WBC 0-1 /hpf (0-3)
[2022-06-16] MEDS ORDERED: ALBUTEROL2.5 MG/3 M IH (14:45)
[2022-06-16] MEDS ORDERED: MORGIDOX 1X100100 MG PO (14:45)
--- NOTE | 2022-06-16 16:37 | NUR ---
Spoke with Julia from [facility]. She states that Bill is appropriate for hospice and she needs assistance with Family to come up with a new plan of care for him. He as progressively declined in functions and cognitive over the last month. Advised we would schedule a time tomorrow to meet with family to discuss his current situation and care needs. Julia's cell [phone] DPOA Kailtin Stratton home phone [phone] Cell phone: [phone] Cassandra Stratton [phone] Daughter Larissa Cruz [phone] Calendar invite sent to Julia MIGUEL at [facility] for Family meeting. left a vm on Kaitlin's cell phone to call this cm back to schedule a family meeting tomorrow. left a message on Daughter Larissa Cruz's phone number above to call this cm back attempted to call Cassandra's phone number provided and it has been disconected.
--- NOTE | 2022-06-16 16:48 | NUR ---
Schedule 10 am family meeting.
[2022-06-16 17:18] VITALS: BP 144/76
--- NOTE | 2022-06-16 19:00 | NUR ---
Report received from Anjali SEGURA. Patient resting in bed. Yelling that he "needs to get out of here". Unable to reorientate patient to place, situation. Will not state his name or answer any questions asked. No signs of distress. Staff in to intervene frequently with patient yelling out. Assessment completed. Bed alarm on. Call light in reach.
[2022-06-16 22:12] VITALS: BP 146/67
--- NOTE | 2022-06-16 22:42 | NUR ---
Patient has not voided. Bladder scan performed. 525 ML in bladder. Heather Holt ACCOUNT MANAGEMENT ASSISTANT notified. Order received to straight Cath PRN.
--- NOTE | 2022-06-16 23:02 | NUR ---
St. Cath performed with #14 Fr. Coude catheter via instrumentation engineering technician. Very slow trickle of urine. 125 ML of dark yellow urinary output obtained. patient would not tolerate anymore. Pericares provided. Repostiioned for comfort.
--- NOTE | 2022-06-17 01:21 | NUR ---
Remains awake and talking to himself. Agitation at times. PYRIDINE OPERATOR in to provide cares. Brief dry. RN in to give IV Ativan 1MG for agitation.
[2022-06-17 02:04] VITALS: BP 142/62
--- NOTE | 2022-06-17 03:22 | NUR ---
Remains awake after having IV Ativan, talking outloud to self.
--- NOTE | 2022-06-17 05:12 | NUR ---
Remained awake most of shift. No voiding this shift. Remains NPO. Repositioned by staff. Cooperatve with AM cares.
[2022-06-17 05:36] VITALS: BP 134/72
--- NOTE | 2022-06-17 07:03 | NUR ---
Report to Mikayla SEGURA.
--- NOTE | 2022-06-17 08:46 | NUR ---
Spoke with Mateus Stratton regarding the progressive decline of Mr. Stratton. Advised that Mr. Stratton would be a candidate for hospice. Discussed pros and cons of hospice. Gave information regarding different hospice programs. Awaiting Speech therapy's advice regarding npo status and swallowing evaluation. Spoke with Larissa Cruz (daughter) of Andres and advised that hospice would be appropriate for Mr. Stratton. She would pass the information along to her mom Mrs. Stratton. Spoke with Julia at [facility] in [place]. She would like to have a plan of care before Mr. Stratton returns to [facility]. Such as NPO - Swallowing status and potentially hospice.
--- NOTE | 2022-06-17 09:46 | NUR ---
Spoke with Kaitlin and Sundeep Rubio. Raphael the sourcing coordinator states that they might have a bed available sometime. Kaitlin is going to speak with Benjamin and her regarding the above and advise.
[2022-06-17 10:59] VITALS: BP 151/75
--- NOTE | 2022-06-17 13:57 | NUR ---
Spoke with Kaitlin and advised we would wait to hear from [facility].
[2022-06-17 14:33] VITALS: BP 96/59
--- NOTE | 2022-06-17 14:43 | NUR ---
Spoke with Kaitlin Stratton and Richard Stratton and Family. They have chosen [facility]. Referral faxed to [facility] [phone].
[2022-06-17 15:15] VITALS: BP 96/59
--- NOTE | 2022-06-17 15:34 | NUR ---
Called Jesus with [facility]. He will contact family regarding admission to hospice.
--- NOTE | 2022-06-17 15:40 | NUR ---
Report called to Imelda at [facility].
--- NOTE | 2022-06-17 15:49 | NUR ---
Called [facility] for transport to [facility]. No truck available at this time, will send crew for transport as soon possible.
--- NOTE | 2022-06-17 17:02 | NUR ---
EMS here to transfer patient back to [facility]. Patient is drowsy. Oriented to self. Unable to follow commands or answer questions appropriately. INT to left AC removed. Patient transferred to stretcher with slide board. Out of facility via stretcher with EMS at this time.
[2022-06-17 18:21] VITALS: BP 94/59
== END 2022-06-17 17:02 ==
LOC: ED 10:34 → MED/SURG 17:01
PROVIDERS: ADMIT Nurse Practitioner
DX: R41.82 Altered mental status, unspecified (principal); I95.9 Hypotension, unspecified; R53.83 Other fatigue; Z86.73 Personal history of transient ischemic attack (TIA), and cerebral infarction without residual deficits; J40 Bronchitis, not specified as acute or chronic; Z95.0 Presence of cardiac pacemaker; R13.10 Dysphagia, unspecified
CPT/HCPCS: A4340; G0378; J0696; J2060; J2930